=== PATIENT | male | born 1950 | race Caucasian/White ===

== ENCOUNTER → 2025-02-12 12:33 | Outpatient (CLI) | payer MEDICARE, OTHER, SELFPAY ==
--- NOTE | 2025-02-12 12:42 | DI.RAD.S_ITS ---
PROCEDURE: XR LUMBAR SPINE 2-3V INDICATIONS: RIGHT SIDE SCIATICA TECHNIQUE: 3 views of the lumbar spine were acquired. COMPARISON: None. FINDINGS: Bones: 5 [id number] vertebrae are present. Trace levoscoliosis has its apex about the L2-L3 interspace. Moderate L1-L2 and L2-L3 and severe T12-L1 and L5-S1 disc height loss with adjacent endplate sclerosis and anterior osteophytosis. There is otherwise normal bony alignment. Chronic appearing superior endplate compression fracture deformity of the L3 vertebral body has resulted in less than 25% height loss. No definite acute vertebral body compression fractures. No suspicious bony lesions. Soft tissues: Overlying bowel gas pattern is normal. No suspicious soft tissue calcifications. Atherosclerotic vascular calcifications. IMPRESSION: Multilevel degenerative change of the lumbar spine and chronic appearing L3 superior endplate compression fracture deformity resulting in less than 25% height loss. No definite evidence of acute osseous abnormality. Dictated by: Dk Jean M.D. on 02/13/2025 at 23:25 Approved by: Dk Jean M.D. on 02/13/2025 at 23:27
--- NOTE | 2025-02-12 12:42 | DI.RAD.S_ITS ---
PROCEDURE: XR KNEE STANDING BI INDICATIONS: KNEE PAIN TECHNIQUE: 3 views of the bilateral knee(s) COMPARISON: None. FINDINGS: Bones: No acute fractures or dislocations. Patellar alignment is normal on the sunrise view. No suspicious bony lesions. Severe bilateral medial and left lateral and moderate right lateral tibiofemoral and moderate to severe bilateral patellofemoral compartment narrowing with associated osteophytosis. Right varus angulation. Soft tissues: No knee joint effusions. No suspicious soft tissue calcification. IMPRESSION: Bilateral kl grade 4 tricompartmental osteoarthritis. No evidence of acute osseous abnormality. Right varus angulation. Dictated by: Dk Jean M.D. on 02/13/2025 at 23:24 Approved by: Dk Jean M.D. on 02/13/2025 at 23:25
== END ==
PROVIDERS: Referring Provider Physician Assistant; Visit Provider Physician Assistant
DX: M54.31 Sciatica, right side (principal); M25.561 Pain in right knee; M25.562 Pain in left knee; G89.29 Other chronic pain; M48.56XA Collapsed vertebra, not elsewhere classified, lumbar region, initial encounter for fracture; M51.369 Other intervertebral disc degeneration, lumbar region without mention of lumbar back pain or lower extremity pain; M17.0 Bilateral primary osteoarthritis of knee; M21.161 Varus deformity, not elsewhere classified, right knee
CPT/HCPCS: 72100; 73565